=== PATIENT | female | born 1990 | race Caucasian/White ===

== ENCOUNTER 2016-07-06 17:00 | Emergency (ER) | payer MEDICAID ==
[2016-07-06 17:20] VITALS: BP 141/81
--- NOTE | 2016-07-06 17:41 | ED Physician Chart ---
Chief Complaint/HPI - Patient Information Allergies:: Allergies Allergy/AdvReac Type Severity Reaction Status Date / Time No Known Allergies Allergy Verified 07/06/16 17:16 Vitals:: Vital Signs - 8 hr 07/06/16 07/06/16 07/06/16 17:16 17:18 18:36 Temp 98.2 F HR 98 RR 110 16 BP 141/81 141/81 141/77 O2 Sat % 100 98 <Heber Jauregui - Last Filed: 07/06/16 21:10> - Patient Information Date Seen:: 07/06/16 Time Seen:: 17:40 Chief Complaint:: LEFT EYE PAIN X 1 DAY History of Present Illness:: This 25 year old female presents with pain in the left eye that began yesterday. 3 days ago the patient had drank a bottle of vodka and used methamphetamine. She had a "black out" about 4 AM in the morning. When she awoke she resumed drinking and has little recall of anything that happened. Yesterday she noted she had redness of the left eye and some pain. She also noted swelling of her lower eyelid and tenderness and swelling of the left side of her face lateral to the left eye. She has no recollection of falling or striking her face. She has had continued redness and pain in the left eye today. The pain is a 4/10 severity and described as burning. Sun light makes the pain worse. Allergies:: Allergies Allergy/AdvReac Type Severity Reaction Status Date / Time No Known Allergies Allergy Verified 07/06/16 17:16 Vitals:: Vital Signs - 8 hr 07/06/16 07/06/16 17:16 17:18 Temp 98.2 F RR 110 BP 141/81 141/81 O2 Sat % 100 <Song Sharp - Last Filed: 07/07/16 11:18> Review of Systems - Review of Systems General/Constitutional: No fever, No chills, No weight loss, No weakness, No diaphoresis, No edema, No loss of appetite Skin: No skin lesions, No rash, No bruising Head: No headache, No light-headedness Eyes: Pain, No diplopia ENT: No earache, No nasal drainage, No sore throat Neck: No neck pain, No swelling, No stiffness, No mass noted Cardio Vascular: No chest pain, other (swelling of the left side of the face.) Pulmonary: No SOB, No cough, No sputum, No wheezing GI: No nausea, No vomiting, No diarrhea, No pain G/U: No dysuria, No frequency, No hematuria Endocrine: No polyuria, No polydipsia Psychiatric: No prior psych history, No suicidal ideation, No auditory hallucination Hematopoietic: Bruising (brusing of left side of face.), No lymphadenopathy Allergic/Immuno: No urticaria, No angioedema Neurological: No paresthesia, No seizure <Song Sharp - Last Filed: 07/07/16 11:18> Past Medical History - Past Medical History Past Medical History: No significant medical hx Social History: Smoker, Alcohol, Illicit Drug Use (smokes and drinks alcohol daily. Also uses methamph.) Surgical History: other ( one year ago.) <Song Sharp - Last Filed: 07/07/16 11:18> Family Medical History - Family Member Mother Hx Family Cancer: No Hx Family Hypertension: No Hx Family Seizures: No Hx Family AIDS: No Hx Family HIV: No Hx Family Hepatitis: No Hx Family Psychiatric Problems: No <Song Sharp - Last Filed: 07/07/16 11:18> Physical Exam - Physical Examination General/Constitutional: Awake, Well-developed, well-nourished, Alert (Mild distress from complained of left eye and facial pain.), Non-toxic appearing, Ambulatory Other Gen/Cons comments:: The patient has mild swelling and tenderness of he left side of the face lateral to the left eye. No lacerations or abrasions. No ecchymosis or bruising. Eyes: PERRL, EOMI Other Eyes comments:: There is moderate hyperemia of the left eye. NO subconjunctival hemorrhage. NO hyphemia. Tonopen of the left eye of 12. Fluorescence staining of the left eye shows a small abrasion of the cornea in the 6 o'clock position. NO nystagmus with full ROM of both eyes. Mild edema of the left lower lid. Skin: Nl inspection, No rash, No skin lesions, No ecchymosis, Well hydrated, No lymphadenopathy ENMT: External ears, nose nl, Nasal exam nl, Lips, teeth, gums nl, Oropharynx nl , Tonsils nl Neck: Nontender, Full ROM w/o pain, No JVD, No nuchal rigidity, No mass Other Neck comments:: NO Thyromegaly Respiratory: Nl effort/Exclusion, Clear to Auscultation, No Wheeze/Rhonchi/Rales Cardio Vascular: RRR, No murmur, gallop, rubs, NL S1 S2 Other Cardio Vascular comments:: adequate pulses in all four extremities. GI: No tenderness/rebounding/guarding, No organomegaly, No hernia, Nondistended , No mass/bruits, No McBurney tenderness Other GI comments:: Rectal examination deferred at my discretion. : No CVA tenderness Extremities: No tenderness or effusion, Full ROM, normal strength in all extremities, No edema Neuro/Psych: Alert/oriented, Normal sensory exam ( Sensory intact to light touch in all four extremities.), Normal motor strength, Mood normal, Normal gait , No focal deficits Misc: Normal back, No paraspinal tenderness <Song Sharp - Last Filed: 07/07/16 11:18> Labs/Radiology/EKG Results - Lab Results Results: Laboratory Tests 07/06/16 18:45 Urine Test NEGATIVE - Radiology Results Results: CT orbits without contrast preliminary report per radiology NAD <Heber Jauregui - Last Filed: 07/06/16 21:10> Assessment - Assessment General Assessment: This patient was passed on to Dr. Webber at the end of the shift. CT scan of the face and head were pending and he will make disposition after reviewing the CT results. <Song Sharp - Last Filed: 07/07/16 11:18> ED Septic Shock - . Is Septic Shock (SBP<90, OR Lactate>4 mmol\\L) present?: No - <6hrs of presentation: Vital Signs: Vital Signs - 8 hr 07/06/16 07/06/16 07/06/16 17:16 17:18 18:36 Temp 98.2 F HR 98 RR 110 16 BP 141/81 141/81 141/77 O2 Sat % 100 98 <Heber Jauregui - Last Filed: 07/06/16 21:10> - <6hrs of presentation: Vital Signs: Vital Signs - 8 hr 07/06/16 07/06/16 17:16 17:18 Temp 98.2 F RR 110 BP 141/81 141/81 O2 Sat % 100 <Song Sharp - Last Filed: 07/07/16 11:18> Reassessment (Disposition) - Reassessment Reassessment:: Blood pressure was noted to be elevated over 120/80. There were no signs of hypertension. Discussed the findings with the patient and recommended that the patient follow up with the primary care physician regarding the elevated blood pressure. CT was negative. Patient has closed head injury. Also has conjunctivitis of of the left eye. About a prescription for gentamicin ophthalmic. Follow-up with PCP 1-2 days. Gave return to ER precautions. Patient understands and agrees the plan. Reassessment Condition:: Improved - Diagnosis Diagnosis:: Left eye conjunctivitis, bacterial, acute Closed head injury Elevated blood pressure without the diagnosis of hypertension - Aftercare/Follow up Instructions Aftercare/Follow-Up Instructions:: Counseled pt regarding lab results/diagnosis & need follow up, Refer to Discharge Instructions - Patient Disposition Discharge/Transfer:: Home Time:: 21:12 Condition at Disposition:: Improved <Heber Jauregui - Last Filed: 07/06/16 21:10> ED Discharge Plan <Heber Jauregui - Last Filed: 07/06/16 21:10> <Song Sharp - Last Filed: 07/07/16 11:18> - Patient Disposition Admit/Discharge/Transfer: PT DISCHARGED HOME Instructions: Bacterial Conjunctivitis, [id number], Head Injury, Adult, Easy- to-Read Additional Instructions: follow up with primary medical doctor ANGEL take prescribed medications as ordered
[2016-07-06] MEDS ORDERED: Tetracaine 0.5% Ophth Soln 15 mL Soln LEFT EYE ONE (17:47)
[2016-07-06] MEDS ORDERED: TETRACAINE HCL 0.5% OPHTH SOLN 4ML BOTTLE ONE (17:48)
[2016-07-06] MEDS ORDERED: Fluorescein Sodium 1 mg Ophth Strip ONE (17:55)
[2016-07-06] MEDS ORDERED: Fluorescein Sodium 1 mg Ophth Strip LEFT EYE ONE (18:38)
--- NOTE | 2016-07-07 11:18 | Diagnostic Imaging Report ---
Head CT without intravenous contrast Indication: Trauma Comparison: None Technique: Axial images were obtained from the vertex to the skull base without IV contrast. Coronal reconstructions were made. Total DLP: 526, CTDI31.6 FINDINGS: Images of the brain obtained without contrast demonstrate no acute hemorrhage. No mass lesions identified. The ventricles and basal cisterns are patent. The gomez-white matter differentiation is preserved. There is no mass effect or midline shift. No skull fractures identified. No soft tissue swelling. The paranasal sinuses are clear. IMPRESSION: No acute intracranial abnormality.
--- NOTE | 2016-07-07 11:33 | Diagnostic Imaging Report ---
CT orbits without IV contrast HISTORY: Trauma, rule out fracture COMPARISON: None Technique: Axial images of the orbits were obtained without IV contrast. Reconstructions were made. Total DLP 169 CTD I 17.5 Findings: The globes and bilateral intraconal compartments are intact. No significant focal soft tissue swelling. The bilateral zygomatic arches are intact. The bilateral orbital floors are intact. There is mild rightward deviation of the nasal septum. There is mucosal thickening of the paranasal sinuses. The TMJ joints are intact. IMPRESSION: No evidence of an acute fracture.
== END 2016-07-06 21:14 | disposition home or self-care (01) ==
LOC: ER 17:00
DX: H10.89 Other conjunctivitis (principal); S09.90XA Unspecified injury of head, initial encounter; R03.0 Elevated blood-pressure reading, without diagnosis of hypertension; F17.200 Nicotine dependence, unspecified, uncomplicated; F15.90 Other stimulant use, unspecified, uncomplicated; X58.XXXA Exposure to other specified factors, initial encounter; Y93.89 Activity, other specified; Y92.89 Other specified places as the place of occurrence of the external cause; Y99.8 Other external cause status
CPT/HCPCS: 70450-TC; 70480-TC; 81025-TC; Z7502